=== PATIENT | female | born 1950 | race Caucasian/White ===

== ENCOUNTER 2017-12-27 07:17 | Day surgery (SDC) | payer MEDICARE, OTHER ==
[~2017-12-27 07:17] MED LIST: Aspirin EC81 MG PO; LEVSOD125 PO; ZESTORETIC 20-251 E1 PO
[2017-12-31 14:26] LABS: Performing Lab SYMBIODX; Test Name TISSUE BLOCK
== END 2017-12-27 22:48 | disposition home or self-care (01) ==
LOC: MOI MAM 07:17
PROVIDERS: Internal Medicine
PROC: 0HBT3ZX Excision of Right Breast, Percutaneous Approach, Diagnostic (ICD-10-PCS; principal; 2017-12-27)
DX: C50.911 Malignant neoplasm of unspecified site of right female breast (principal); Z17.0 Estrogen receptor positive status [ER+]
CPT/HCPCS: 19083; 77065; 88305; 88360; A4648

== ENCOUNTER → 2018-10-16 | Outpatient (CLI) | payer MEDICARE, OTHER ==
[2018-10-16 13:24] LABS: Stool Occult Blood Guaiac 1 Neg (Neg)
== END | disposition home or self-care (01) ==
LOC: LAB 12:14 → LAB SHORT 12:14
PROVIDERS: Surgery Surgical Oncology
DX: C50.111 Malignant neoplasm of central portion of right female breast (principal); R19.7 Diarrhea, unspecified
CPT/HCPCS: 82270; 87015; 87045; 87046; 87177; 87205; 87209; 87493; 87899

== ENCOUNTER → 2020-02-05 | Outpatient (CLI) | payer MEDICARE, OTHER ==
[2020-02-07 04:20] LABS: ADENOVIRUS F 40/41 Not Detected (Not Detected); ASTROVIRUS Not Detected (Not Detected); C DIFFICILE TOXIN A/B Not Detected (Not Detected); CAMPYLOBACTER Not Detected (Not Detected); CRYPTOSPORIDIUM Not Detected (Not Detected); CYCLOSPORA CAYETANENSIS Not Detected (Not Detected); ENTAMOEBA HISTOLYTICA Not Detected (Not Detected); ENTEROAGGREGATIVE E COLI Not Detected (Not Detected); ENTEROPATHOGENIC E COLI Not Detected (Not Detected); ENTEROTOXIGENIC E COLI Not Detected (Not Detected); GIARDIA LAMBLIA Not Detected (Not Detected); NOROVIRUS GI/GII Not Detected (Not Detected); PLESIOMONAS SHIGELLOIDES Not Detected (Not Detected); ROTAVIRUS A Not Detected (Not Detected); SALMONELLA Not Detected (Not Detected); SAPOVIRUS Not Detected (Not Detected); SHIGA-TOXIN-PRODUCING E COLI Not Detected (Not Detected); SHIGELLA/ENTEROINVASIVE E COLI Not Detected (Not Detected); VIBRIO Not Detected (Not Detected); VIBRIO CHOLERAE Not Detected (Not Detected); YERSINIA ENTEROCOLITICA Not Detected (Not Detected)
== END | disposition home or self-care (01) ==
LOC: LAB SHORT 02-04 12:28 → LAB EV 00:38 → LAB SHORT 00:38
PROVIDERS: Internal Medicine
DX: R19.7 Diarrhea, unspecified (principal)
CPT/HCPCS: 0097U

== ENCOUNTER 2020-05-23 10:16 | Day surgery (SDC) | payer MEDICARE, OTHER ==
[~2020-05-23] VITALS: Ht 162.6 cm; Wt 67.4 kg
[2020-05-23] MEDS ORDERED: CHOLP PO (11:22)
[2020-05-23] MEDS ORDERED: LETR2.5 PO (11:23)
--- NOTE | 2020-05-23 12:56 | NUR ---
05/23/20 1256 Saira Anna DC'D NOW. SATS ARE 98%
--- NOTE | 2020-05-23 13:23 | NUR ---
05/23/20 1323 Saira Anna PT IS IN THE RECLINER AT THIS TIME; RESTING, STILL, WITH EYES CLOSED. VSS. WHEN ASKED, PT REPORTS PAIN 01/22. RN TREATING PAIN PER DR'S ORDERS. PT COMPLAINED OF NAUSEA PRIOR TO MOVING FROM THE GURNEY TO THE CHAIR. RN TREATED NAUSEA WITH IV ZOFRAN PER DR'S ORDERS. NOTIFIED OF PT'S PROGRESS. RN ENCOURAGING PT TO EAT A CRACKER TO PREVENT NAUSEA FROM ORAL MEDICATION THAT WILL BE ADMINISTERED SOON. WARM BLANKETS PROVIDED AND ICE ON THE OP SITE.
== END 2020-05-23 14:06 | disposition home or self-care (01) ==
LOC: ORSCSDS 10:16
PROVIDERS: Orthopaedic Surgery
PROC: 0PSH04Z Reposition Right Radius with Internal Fixation Device, Open Approach (ICD-10-PCS; principal; 2020-05-23 11:45)
DX: S52.551A Other extraarticular fracture of lower end of right radius, initial encounter for closed fracture (principal); S52.601A Unspecified fracture of lower end of right ulna, initial encounter for closed fracture; I10 Essential (primary) hypertension; E03.9 Hypothyroidism, unspecified; I48.91 Unspecified atrial fibrillation; Z79.82 Long term (current) use of aspirin; Z85.3 Personal history of malignant neoplasm of breast; Z79.899 Other long term (current) drug therapy
CPT/HCPCS: A9270; C1713; J0690; J1100; J1885; J2250; J2370; J2405; J2704; J3010; J7120

== ENCOUNTER → 2020-05-27 | Outpatient (CLI) | payer MEDICARE, OTHER ==
[~2020-05-27] MED LIST changes: +CHOLP PO; +LETR2.5 PO
== END | disposition home or self-care (01) ==
LOC: LAB SHORT 12:24 → LAB 12:24
DX: K52.9 Noninfective gastroenteritis and colitis, unspecified (principal)
CPT/HCPCS: 83631

== ENCOUNTER 2022-09-01 14:58 | Emergency (ER) | payer MEDICARE, OTHER ==
[~2022-09-01] VITALS: Ht 165.1 cm; Wt 63.5 kg
[2022-09-01 15:10] VITALS: BP 171/81
[2022-09-01] MEDS ORDERED: ONDA4ODT MM (16:13)
== END 2022-09-01 16:21 | disposition home or self-care (01) ==
LOC: ER 14:58
DX: R11.0 Nausea (principal); R42 Dizziness and giddiness; Z85.3 Personal history of malignant neoplasm of breast; Z88.6 Allergy status to analgesic agent; Z88.5 Allergy status to narcotic agent; Z88.8 Allergy status to other drugs, medicaments and biological substances; W01.198A Fall on same level from slipping, tripping and stumbling with subsequent striking against other object, initial encounter
CPT/HCPCS: 99283; A9270